=== PATIENT | female | born 1955 | race Caucasian/White ===

== ENCOUNTER → 2016-10-25 | Day surgery (SDC) | payer OTHER ==
[~2016-10-25] VITALS: Ht 182.9 cm; Wt 90.7 kg
[~2016-10-25] MED LIST: HYDROCHLOROTHIA25 M1 PO
--- NOTE | 2016-10-25 10:27 | Operative Report ---
Operative/Inv Procedure Report Surgery Date: 10/25/16 Name of Procedure: Right breast excisional biopsy with wire localization Pre-Operative Diagnosis: Complex sclerosing papillary lesion Post-Operative Diagnosis: Same Estimated Blood Loss: scant Surgeon/Special Client Bus Driver: YARELIS SIERRA MD Anesthesia: local monitored anesthesi Specimens: Right breast biopsy Operative/Procedure Note Note: Patient was status post a needle biopsy showing complex coursing papillary lesion and ADH. Excisional biopsy is recommended. She is brought to the operating room on 10/25/2016 after preoperative wire localization was performed and the films reviewed. She was placed under anesthesia and the right breast was prepped and draped in a sterile fashion ChloraPrep. 2 g of Ancef was given. Local anesthesia 1% lidocaine exception Marcaine was given and a curvilinear incision was made at 12:00 in the right breast. The wire was brought into the incision. The area of concern was grasped using an Allis clamp and dissected using electrocautery. Specimen was removed and marked for orientation and margin map. Intraoperative x-ray confirmed the presence of the clip in the specimen. Hemostasis was achieved using electrocautery. Deep tissue was approximated using interrupted Vicryl sutures, and skin was closed using a running Biosyn subcutaneous color stitch. Steri-Strips and sterile dressings were applied, the patient was transferred to the recovery room in satisfactory condition having tolerated the procedure well.
--- NOTE | 2016-10-25 18:27 | MAMMOGRAPHY REPORT ---
EXAMINATION: MM NEEDLE LOCALIZATION SPECIMEN FROM THE BREAST, RIGHT BREAST CLINICAL INDICATION: Excision of sclerosing papillary lesion with ductal hyperplasia and focal atypia. COMPARISON: Preoperative needle localization films from earlier today. TECHNIQUE: Single specimen radiograph. FINDINGS: The radiograph of the excised surgical specimen shows that the hookwire is delivered intact and the marker clip and calcifications are identified in the specimen. IMPRESSION: Satisfactory excision of the targeted lesion. These findings were communicated to the surgeon in the OR at the time of specimen radiography.
--- NOTE | 2016-10-28 17:50 | MAMMOGRAPHY REPORT ---
EXAMINATION: MM GUIDED NEEDLE LOCALIZATION BREAST, RIGHT CLINICAL INFORMATION: Needle localization of a biopsy-proven sclerosing papillary lesion with ductal hyperplasia and focal atypia. COMPARISON: Ultrasound-guided biopsy and post procedure mammogram dated 09/12/2016. TECHNIQUE NEEDLE LOC: Proper informed consent is obtained from the patient after discussion of the procedure, potential risks and complications, and alternatives including declining the procedure today. Patient was given an opportunity for questions. The patient appeared to understand. The patient consented to the procedure and signed the consent form. GUIDANCE: Digital mammography. APPROACH: Superior. TARGET: Biopsy clip in the upper outer quadrant of the right breast. ANESTHESIA: 10 mL Xylocaine 2%. LOCALIZATION MARKER: Guideslys 7 cm needle localization wire. The skin was prepped and local anesthesia administered. The needle was positioned and position assessed with mammography. The wire was hooked into position. The patient tolerated the procedure well and had no immediate complication. Diagram was marked for the surgeon. The target is around the distal thick thin junction of the wire, 8 cm deep to the skin with 11.5 cm of the wire remaining external to the skin. IMPRESSION: Status post right breast needle localization with wire hooked into position. The target is around the distal thick thin junction of the wire, 8 cm deep to the skin with 11.5 cm of the wire remaining external to the skin.
== END ==
LOC: STS 01:46 → CBW.IIU 08:00 → STS 08:00 → CBW.MAMMO 08:30
DX: D24.1 Benign neoplasm of right breast (principal); I10 Essential (primary) hypertension
CPT/HCPCS: J0690; J2001; J2250